=== PATIENT | male | born 1945 | race Caucasian/White ===

== ENCOUNTER 2016-09-24 08:12 | Emergency (ER) | payer MEDICARE, OTHER ==
[~2016-09-24] VITALS: Ht 180.3 cm; Wt 122.0 kg
[~2016-09-24 08:12] MED LIST: ALLO100T30 PO; FINA5TAB4 PO; LEVO75TA5 PO; METO25TA35 PO; RANI300T PO; TEST200V IM; VALS160T3 PO
[2016-09-24] MEDS ORDERED: SODIUM CHLORIDE FLUSH 10ML SYR IVF ONE (09:00)
[2016-09-24] MEDS ORDERED: ASPIRIN 81 MG TABLET CHEW PO ONE (09:00)
[2016-09-24] MEDS ORDERED: SILD100T PO (09:14)
[2016-09-24] MEDS ORDERED: ASPI-496 PO (09:14)
[2016-09-24] MEDS ORDERED: FLUO40CR9 TP (09:14)
[2016-09-24] MEDS ORDERED: TAMS-11 PO (09:14)
[2016-09-24] MEDS ORDERED: HYDR25TA6 PO (09:14)
[2016-09-24] MEDS ORDERED: MV,M1TAB6 PO (09:14)
[2016-09-24] MEDS ORDERED: GABA300C10 PO (09:14)
[2016-09-24] MEDS ORDERED: ASPIRIN 81 MG TABLET CHEW ONE (09:23)
[2016-09-24 10:06] VITALS: BP 130/73
[2016-09-24 10:07] LABS: ASPARTATE AMINO TRANSFERASE 35 U/L (15-37); BLOOD UREA NITROGEN 30 mg/dL (7-18)
[2016-09-24 10:15] LABS: IS PT STATUS REG ER OR PRE ER? YES
== END 2016-09-24 10:56 | disposition home or self-care (01) ==
LOC: ED 09:43
DX: R07.89 Other chest pain (principal); N17.9 Acute kidney failure, unspecified; I10 Essential (primary) hypertension; Z87.891 Personal history of nicotine dependence; D75.1 Secondary polycythemia
CPT/HCPCS: 36415; 71010; 80053; 84484; 85025; 93005; 99285

== ENCOUNTER → 2017-03-21 | Outpatient (CLI) | payer MEDICARE, OTHER ==
[~2017-03-21] MED LIST changes: +ASPI-496 PO; +FLUO40CR9 TP; +GABA300C10 PO; +HYDR25TA6 PO; +MV,M1TAB6 PO; +SILD100T PO; +TAMS-11 PO
== END | disposition home or self-care (01) ==
LOC: CFH 08:49 → EDSTATUS 09:30
PROVIDERS: ATTEND Internal Medicine Nephrology
DX: N28.1 Cyst of kidney, acquired (principal); N40.0 Benign prostatic hyperplasia without lower urinary tract symptoms; M10.9 Gout, unspecified; N18.3 Chronic kidney disease, stage 3 (moderate)
CPT/HCPCS: 76770

== ENCOUNTER → 2018-01-22 | Outpatient (CLI) | payer MEDICARE, OTHER | END | disposition home or self-care (01) | LOC: CVU 09:39 | PROVIDERS: ATTEND Internal Medicine Cardiovascular Disease | DX: I35.1 Nonrheumatic aortic (valve) insufficiency (principal); I35.8 Other nonrheumatic aortic valve disorders; I11.9 Hypertensive heart disease without heart failure; Z87.891 Personal history of nicotine dependence; Z85.828 Personal history of other malignant neoplasm of skin | CPT/HCPCS: 93306 ==